=== PATIENT | female | born 1970 | race Caucasian/White ===

== ENCOUNTER 2018-12-01 13:12 | Emergency (ER) | payer MEDICAID ==
[~2018-12-01] VITALS: Ht 152.4 cm; Wt 94.0 kg
[~2018-12-01 13:12] MED LIST: ACET-2178
[2018-12-01] MEDS ORDERED: ONDANSETRON HCL 4MG/2ML INJ IV STA (14:22)
[2018-12-01] MEDS ORDERED: KETOROLAC 30MG/ML VIAL IV STA (14:22)
[2018-12-01 14:38] LABS: BASOPHILS % 0.4 % (0.0-2.0); EOSINOPHILS % 0.3 % (0.0-5.0); HEMATOCRIT. 37.6 % (36.0-48.0); HEMOGLOBIN. 12.4 g/dL (12.0-16.0); MEAN CORPUSCULAR HEMOGLOBIN 28.2 pg (28.0-32.0); MEAN CORPUSCULAR VOLUME 85.8 fL (81.0-99.0); MONOCYTES % 3.7 % (2.0-8.0); NEUTROPHILS % 86.6 % (40.0-76.0); PLATELET 272 x1000/uL (130-400); RED BLOOD CELL COUNT 4.38 mill/uL (4.2-5.4); RED CELL DISTRIBUTION WIDTH 14.3 % (11.6-14.6)
[2018-12-01 14:44] LABS: CHLORIDE 104 mEq/L (98-107)
[2018-12-01 16:03] LABS: CLARITY URINE CLEAR (CLEAR); COLOR URINE YELLOW (YELLOW); KETONES URINE NEGATIVE (NEGATIVE); LEUKOCYTE ESTERASE URINE NEGATIVE (NEGATIVE); NITRITE URINE NEGATIVE (NEGATIVE); OCCULT BLOOD URINE NEGATIVE (NEGATIVE); PROTEIN URINE NEGATIVE (NEGATIVE); UROBILINOGEN URINE 0.2 E.U./dL (0.2-1.0)
[2018-12-01 17:03] VITALS: BP 111/68
== END 2018-12-01 17:00 | disposition home or self-care (01) ==
LOC: ER 13:12
DX: R10.9 Unspecified abdominal pain (principal); K42.9 Umbilical hernia without obstruction or gangrene; J45.909 Unspecified asthma, uncomplicated; R73.03 Prediabetes; Z87.891 Personal history of nicotine dependence
CPT/HCPCS: 36415; 74176; 80053; 81003; 81025; 83690; 85025; 96374; 96375; 99284; J1885; J2405

== ENCOUNTER 2021-11-27 09:57 | Emergency (ER) | payer MEDICAID ==
[~2021-11-27] VITALS: Ht 152.4 cm; Wt 91.0 kg
[~2021-11-27 09:57] MED LIST changes: -ACET-2178; +TOPUD
[2021-11-27 11:38] LABS: BASOPHILS % 0.6 % (0.0-2.0); HEMATOCRIT. 40.1 % (36.0-48.0); HEMOGLOBIN. 13.4 g/dL (12.0-16.0); LYMPHOCYTES % 10.8 % (20.0-50.0); MEAN CORPUSCULAR VOLUME 89.7 fL (81.0-99.0); MEAN PLATELET VOLUME 9.1 fl (7.4-10.4); NEUTROPHILS % 82.6 % (40.0-76.0); PLATELET 280 x1000/uL (130-400); RED BLOOD CELL COUNT 4.48 mill/uL (4.2-5.4); RED CELL DISTRIBUTION WIDTH 13.4 % (11.6-14.6)
[2021-11-27 11:42] LABS: CHLORIDE 108 mEq/L (98-107)
[2021-11-27] MEDS ORDERED: KETOROLAC 60MG/2ML VIAL IM STA (12:18)
[2021-11-27] MEDS ORDERED: ONDANSETRON HCL 4MG/2ML INJ IV ONE (14:30)
[2021-11-27] MEDS ORDERED: MORPHINE SULFATE 4 MG/ML CPJ (NOT FOR IM USE) IV ONE (14:30)
[2021-11-27] MEDS ORDERED: KETOROLAC 30MG/ML VIAL IV ONE (14:30)
[2021-11-27 14:59] LABS: CLARITY URINE CLOUDY (CLEAR); COLOR URINE YELLOW (YELLOW); KETONES URINE NEGATIVE (NEGATIVE); LEUKOCYTE ESTERASE URINE 2+ (NEGATIVE); NITRITE URINE POSITIVE (NEGATIVE); OCCULT BLOOD URINE NEGATIVE (NEGATIVE); PH URINE 6.5 (4.5-8.0); PROTEIN URINE NEGATIVE (NEGATIVE); SPECIFIC GRAVITY URINE 1.028 (1.005-1.030); UROBILINOGEN URINE 0.2 E.U./dL (0.2-1.0)
[2021-11-27 15:01] VITALS: BP 195/79
[2021-11-27] MEDS ORDERED: DIPHENHYDRAMINE 50MG/ML VIAL IV ONE (15:30)
[2021-11-27] MEDS ORDERED: NITR-87 MT (16:33)
[2021-11-27] MEDS ORDERED: IOHEXOL-300 100 ML BOTTLE ONE (18:59)
== END 2021-11-27 20:11 | disposition home or self-care (01) ==
LOC: ER 09:57
DX: N39.0 Urinary tract infection, site not specified (principal); R10.9 Unspecified abdominal pain; J45.909 Unspecified asthma, uncomplicated; Z88.6 Allergy status to analgesic agent; Z87.440 Personal history of urinary (tract) infections; Z98.890 Other specified postprocedural states
CPT/HCPCS: 36415; 74177; 80053; 81003; 83605; 85025; 93005; 96374; 96375; 99285; J1200; J1885; J2270; J2405; Q9967

== ENCOUNTER 2023-08-28 22:48 | Emergency (ER) | payer MEDICAID ==
[~2023-08-28] VITALS: Ht 152.4 cm; Wt 91.0 kg
[~2023-08-28 22:48] MED LIST changes: +NITR-87 MT
[2023-08-29] MEDS ORDERED: ALBUTEROL (0.083%) 2.5MG/3ML NEB HHN STA (04:18)
[2023-08-29 05:12] VITALS: PULSE 89; RESP 20; O2SAT 91
[2023-08-29] MEDS ORDERED: PREDNISONE 20MG TABLET PO ONE (05:45)
[2023-08-29] MEDS ORDERED: IPRATROPIUM/ALBUTEROL 0.5-3(2.5)MG/3ML NEB HHN ONE (06:30)
[2023-08-29 06:52] VITALS: PULSE 98; RESP 20; O2SAT 94
[2023-08-29] MEDS ORDERED: TOPUD MT (07:26)
[2023-08-29] MEDS ORDERED: DEXT30SU17 MT (07:26)
[2023-08-29] MEDS ORDERED: P50 MT (07:26)
[2023-08-29] MEDS ORDERED: ALBU90AE INH (07:26)
[2023-08-29 08:06] VITALS: BP 135/82; PULSE 98; RESP 20; TEMP 98.4
== END 2023-08-29 08:08 | disposition home or self-care (01) ==
LOC: ER 23:00
DX: J45.901 Unspecified asthma with (acute) exacerbation (principal); Z98.890 Other specified postprocedural states; Z79.899 Other long term (current) drug therapy
CPT/HCPCS: 94640; 99285; 71045; Z7610 ×4; J7512

== ENCOUNTER 2023-09-20 16:20 | Emergency (ER) | payer MEDICAID ==
[~2023-09-20] VITALS: Ht 152.4 cm; Wt 87.0 kg
[~2023-09-20 16:20] MED LIST changes: +ALBU90AE INH; +DEXT30SU17 MT; +P50 MT; +TOPUD MT
[2023-09-20 16:39] VITALS: O2SAT 98
[2023-09-20] MEDS ORDERED: IBUPROFEN 600MG TABLET PO ONE (18:45)
[2023-09-20] MEDS ORDERED: FAMOTIDINE 20MG TABLET PO ONE (19:30)
[2023-09-20] MEDS ORDERED: ONDANSETRON 4MG ODT PO ONE (19:30)
[2023-09-20 19:40] LABS: BASOPHILS % 1.2 % (0.0-2.0); EOSINOPHILS % 3.2 % (0.0-5.0); HEMATOCRIT. 37.3 % (36.0-48.0); HEMOGLOBIN. 12.4 g/dL (12.0-16.0); LYMPHOCYTES % 28.7 % (20.0-50.0); MEAN CORPUSCULAR HEMOGLOBIN 28.9 pg (28.0-32.0); MEAN CORPUSCULAR HGB CONC 33.1 g/dL (31.0-37.0); MEAN CORPUSCULAR VOLUME 87.4 fL (81.0-99.0); MEAN PLATELET VOLUME 7.8 fl (7.4-10.4); MONOCYTES % 8.2 % (2.0-8.0); NEUTROPHILS % 58.7 % (40.0-76.0); PLATELET 520 x1000/uL (130-400); RED BLOOD CELL COUNT 4.27 mill/uL (4.2-5.4); WHITE BLOOD COUNT 6.5 x1000/uL (4.5-11.0)
[2023-09-20 19:49] LABS: HCG SCREEN NEGATIVE
[2023-09-20 19:55] LABS: ALANINE AMINOTRANSFERASE 12 IU/L (10-49); ASPARTATE AMINOTRANSFERASE 12 IU/L (<34); BILIRUBIN TOTAL 0.2 mg/dL (0.1-1.0); CALCIUM 9.1 mg/dL (8.7-10.4); CARBON DIOXIDE 29 mEq/L (21-32); CHLORIDE 104 mEq/L (98-107); CREATININE 0.7 mg/dL (0.6-1.0); GLUCOSE 101 mg/dL (70-105); POTASSIUM 4.1 mEq/L (3.5-5.1); PROTEIN TOTAL 7.5 g/dL (6.0-8.3); SODIUM 139 mEq/L (136-145); UREA NITROGEN BLOOD 13 mg/dL (9-23)
[2023-09-20 20:01] LABS: TROPONIN I HIGH SENSITIVITY < 4 ng/L (3.0-34)
[2023-09-20] MEDS ORDERED: ONDANSETRON 4MG ODT PO NR (22:15)
[2023-09-20] MEDS ORDERED: IBUPROFEN 600MG TABLET PO NR (22:15)
[2023-09-20] MEDS ORDERED: FAMOTIDINE 20MG TABLET PO NR (22:15)
[2023-09-20 22:21] VITALS: BP 137/91; PULSE 93; RESP 16
[2023-09-20 22:48] LABS: CLARITY URINE CLOUDY (CLEAR); COLOR URINE YELLOW (YELLOW); GLUCOSE URINE NEGATIVE (NEGATIVE); KETONES URINE NEGATIVE (NEGATIVE); LEUKOCYTE ESTERASE URINE NEGATIVE (NEGATIVE); NITRITE URINE NEGATIVE (NEGATIVE); OCCULT BLOOD URINE NEGATIVE (NEGATIVE); PH URINE 5.5 (4.5-8.0); PROTEIN URINE NEGATIVE (NEGATIVE); UROBILINOGEN URINE 0.2 E.U./dL (0.2-1.0)
[2023-09-20 23:03] LABS: BACTERIA URINE TRACE; CALCIUM OXALATE CRYSTALS URINE 1+ /lpf; RBC URINE NONE SEEN /hpf (0-2); SQUAMOUS EPITHELIAL CELL URINE 1+ /lpf (RARE/1+); WBC URINE 0-2 /hpf (0-2)
[2023-09-21] MEDS ORDERED: CYCLOBENZAPRINE 10MG TABLET PO NR
[2023-09-21] MEDS ORDERED: ACETAMINOPHEN 500MG TABLET PO NR
[2023-09-21 00:03] VITALS: TEMP 98.3
[2023-09-21] MEDS ORDERED: IBUP-2029 MT (00:15)
[2023-09-21] MEDS ORDERED: TAMS-11 MT (00:15)
== END 2023-09-21 00:19 | disposition home or self-care (01) ==
LOC: ER 16:20
DX: N20.0 Calculus of kidney (principal); J45.909 Unspecified asthma, uncomplicated; Z98.890 Other specified postprocedural states; Z88.6 Allergy status to analgesic agent
CPT/HCPCS: 99284; 74176; 80053; 81003; 84703; 85025; 84484; 36415; Q0162

== ENCOUNTER 2024-09-17 11:07 | Emergency (ER) | payer MEDICAID ==
[~2024-09-17] VITALS: Ht 152.4 cm; Wt 90.7 kg
[~2024-09-17 11:07] MED LIST changes: +IBUP-2029 MT; +TAMS-11 MT
[2024-09-17 11:08] VITALS: BP 145/92; TEMP 98.6
[2024-09-17 11:12] VITALS: O2SAT 98
[2024-09-17 11:43] LABS: EOSINOPHILS % 11.9 % (0.0-5.0); HEMATOCRIT. 38.6 % (36.0-48.0); HEMOGLOBIN. 12.4 g/dL (12.0-16.0); LYMPHOCYTES % 29.6 % (20.0-50.0); MEAN CORPUSCULAR HEMOGLOBIN 28.8 pg (28.0-32.0); MEAN CORPUSCULAR HGB CONC 32.2 g/dL (31.0-37.0); MEAN CORPUSCULAR VOLUME 89.6 fL (81.0-99.0); MEAN PLATELET VOLUME 9.2 fl (7.4-10.4); MONOCYTES % 13.1 % (2.0-8.0); NEUTROPHILS % 44.4 % (40.0-76.0); PLATELET 283 x1000/uL (130-400); WHITE BLOOD COUNT 4.9 x1000/uL (4.5-11.0)
[2024-09-17 11:51] LABS: CHLORIDE 108 mEq/L (98-107); POTASSIUM 4.1 mEq/L (3.5-5.1); SODIUM 140 mEq/L (136-145)
[2024-09-17 11:52] LABS: CARBON DIOXIDE 24 mEq/L (21-32)
[2024-09-17 11:53] LABS: CALCIUM 9.2 mg/dL (8.7-10.4)
[2024-09-17 11:57] LABS: CREATININE 0.8 mg/dL (0.6-1.0); GLUCOSE 96 mg/dL (70-105); UREA NITROGEN BLOOD 13 mg/dL (9-23)
[2024-09-17 11:58] VITALS: PULSE 111; RESP 19; O2SAT 100
[2024-09-17] MEDS: ALBUTEROL (0.083%) 2.5MG/3ML NEB HHN STA (11:58)
[2024-09-17] MEDS: IPRATROPIUM BROMIDE (0.02%) 0.5MG/2.5ML NEB HHN STA (11:58)
[2024-09-17 12:11] LABS: TROPONIN I HIGH SENSITIVITY < 4 ng/L (3.0-34)
[2024-09-17] MEDS: METHYLPREDNISOLONE SOD SUCC 125MG/2ML (ACT-O-VIAL) IM STA (12:16)
[2024-09-17] MEDS ORDERED: PERM60CR4 TP (12:21)
[2024-09-17] MEDS ORDERED: AZIT250T12 MT (12:21)
[2024-09-17] MEDS ORDERED: METH4TAB95 MT (12:21)
[2024-09-17] MEDS ORDERED: ALBU05 NEB (12:21)
== END 2024-09-17 15:19 | disposition home or self-care (01) ==
LOC: ER 11:07
DX: J45.901 Unspecified asthma with (acute) exacerbation (principal); J20.9 Acute bronchitis, unspecified; L30.9 Dermatitis, unspecified; Z88.5 Allergy status to narcotic agent; Z98.890 Other specified postprocedural states
CPT/HCPCS: 80048; 85025; 84484; 36415; 71045; 94640; 93005; 94070; 96372; 99285; J2919; Z7610 ×3